=== PATIENT | male | born 1945 | race Caucasian/White ===

== ENCOUNTER → 2023-02-13 | Outpatient (CLI) | payer MEDICARE ==
--- NOTE | 2023-02-14 19:42 | CA ---
Transthoracic Echo Report Name: Keyur Rubin Age: 77 Gender: M : 1945 Exam Date: 02/13/2023 15:53 Exam Location: [place] [facility] Ht (in): 75 Wt (lb): 276 Ordering Physician: Mark Reynoso MD Attending/Referring Phys: Mark Reynoso MD Dental Equipment Repairer Deisi Bobby, [facility] Procedure CPT: Indications: G47.33 OBSTRUCTIVE SLEEP APNEA Cardiac Hx: Technical Quality: Technically difficult study Contrast 1: Total Dose (mL): Contrast 2: Total Dose (mL): MEASUREMENTS (Male / Female) Normal Values 2D ECHO LV Diastolic Diameter PLAX 4.9 cm 4.2 - 5.9 / 3.9 - 5.3 cm LV Systolic Diameter PLAX 3.3 cm IVS Diastolic Thickness 1.5 cm 0.6 - 1.0 / 0.6 - 0.9 cm LVPW Diastolic Thickness 1.6 cm 0.6 - 1.0 / 0.6 - 0.9 cm LV Relative Wall Thickness 0.6 RV Internal Dim ED PLAX 3.3 cm LA Systolic Diameter LX 3.7 cm 3.0 - 4.0 / 2.7 - 3.8 cm LV Diastolic Volume MOD 4C 93.0 cm??? LV Systolic Volume MOD 4C 40.1 cm??? LV Ejection Fraction MOD 4C 56.9 % LV Cardiac Index MOD 4C 1276.0 cm???/min???m??? LV Diastolic Length 4C 9.4 cm LV Systolic Length 4C 7.5 cm LV Diastolic Volume MOD 2C 122.6 cm??? LV Systolic Volume MOD 2C 49.3 cm??? LV Ejection Fraction MOD 2C 59.8 % LV Cardiac Index MOD 2C 1768.3 cm???/min???m??? LV Diastolic Length 2C 9.2 cm LV Systolic Length 2C 7.1 cm LA Volume 85.3 cm??? 18 - 58 / 22 - 52 cm??? LA Volume Index 32.7 cm???/m??? 16 - 28 cm???/m??? M-MODE Aortic Root Diameter MM 3.7 cm MV E Point Septal Separation 0.2 cm AV Cusp Separation MM 1.8 cm DOPPLER AV Peak Velocity 130.6 cm/s AV Peak Gradient 6.8 mmHg MV Area PHT 2.9 cm??? Mitral E Point Velocity 89.1 cm/s Mitral A Point Velocity 87.4 cm/s Mitral E to A Ratio 1.0 MV Deceleration Time 258.1 ms MV E' Velocity 7.7 cm/s Mitral E to MV E' Ratio 11.6 TR Peak Velocity 256.4 cm/s TR Peak Gradient 26.3 mmHg Right Ventricular Systolic Press 34.0 mmHg FINDINGS Left Ventricle Left ventricular ejection fraction is estimated at 60-65 %. Left ventricular cavity size normal. Mild concentric left ventricular hypertrophy. Right Ventricle Mild right ventricular dilatation. Borderline PHTN Right Atrium Normal right atrial size. Left Atrium Mildly increased left atrial volume. Mildly increased left atrial area. Mitral Valve Structurally normal mitral valve. No mitral stenosis, regurgitation or prolapse. Aortic Valve Trileaflet aortic valve. Aortic valve sclerosis. No aortic valve stenosis or regurgitation. Tricuspid Valve Structurally normal tricuspid valve. Mild tricuspid regurgitation. Pulmonic Valve Structurally normal pulmonic valve. Trace pulmonic regurgitation. Pericardium No pericardial effusion. Aorta Normal size aortic root and proximal ascending aorta. CONCLUSIONS Technically difficult study. Left ventricular ejection fraction is estimated at 60-65 %. Mild concentric left ventricular hypertrophy. RVSP estimated 34 mmHg Mild left atrial dilatation dilatation No significant valvular pathology No pericardial effusion Previewed by: Dr Gui Martinez (Electronically Signed) Final Date: 14 February 2023 19:41
== END | disposition home or self-care (01) ==
LOC: RADECHMAIN 15:47
PROVIDERS: ATTEND Family Medicine
DX: I51.7 Cardiomegaly (principal); G47.33 Obstructive sleep apnea (adult) (pediatric)
CPT/HCPCS: 93306